=== PATIENT | male | born 1950 | race Caucasian/White ===

== ENCOUNTER 2019-12-29 10:55 | Outpatient (CLI) | payer MEDICARE, SELFPAY ==
[2019-12-29 11:30] VITALS: PULSE 64; O2SAT 93
[2019-12-29 11:35] VITALS: PULSE 100; O2SAT 86
[2019-12-29 11:37] VITALS: O2SAT 87
[2019-12-29 11:39] VITALS: O2SAT 90
[2019-12-29 11:45] VITALS: PULSE 67; O2SAT 92
[2019-12-29 11:46] LABS: Creatinine Urine 147.5 mg/dL
--- NOTE | 2019-12-29 11:49 | HOMEO2EVAL ---
Home Oxygen Evaluation RC: Home Oxygen (O2) Evaluation Start: 12/29/19 11:46 Freq: Status: Active Protocol: RPE Activity Type Activity Date Activity User E-Sign Co-Sign Detail Recorded Client Recorded Date Recorded By Document 12/29/19 11:30 AMINAH [email or web address] 12/29/19 11:48 AMINAH Document 12/29/19 11:35 AMINAH [email or web address] 12/29/19 11:48 AMINAH Document 12/29/19 11:37 AMINAH [email or web address] 12/29/19 11:48 AMINAH Document 12/29/19 11:39 AMINAH [email or web address] 12/29/19 11:48 AMINAH Document 12/29/19 11:45 AMINAH [email or web address] 12/29/19 11:48 AMINAH 12/29/19 12/29/19 12/29/19 11:30 11:35 11:37 Home O2 Evaluation Test Phase Resting Exercise Exercise Oxygen Delivery Room Air Room Air Nasal Cannula Oxygen Flow Rate (L/min) 1 Pulse Oximetry (90-100 %) 93 86 L 87 L Pulse Rate (60-100 beats/min) 64 100 Ambulation Distance (feet) Home Oxygen Evaluation Comments Treatment Charges O2 Evaluation 12/29/19 12/29/19 11:39 11:45 Home O2 Evaluation Test Phase Exercise Resting Oxygen Delivery Nasal Cannula Room Air Oxygen Flow Rate (L/min) 2 Pulse Oximetry (90-100 %) 90 92 Pulse Rate (60-100 beats/min) 67 Ambulation Distance (feet) 150 Home Oxygen Evaluation Comments PT REQUIRES 2 WITH ACTIVITY Treatment Charges
--- NOTE | 2019-12-29 11:49 | PCRCNOTE ---
SIX MINUTE WALK FAILED, HOME O2 EVAL DONE TO EVALUATE O2 NEEDS PER ORDER.
--- NOTE | 2019-12-29 11:50 | PCRCNOTE ---
HOME O2 EVAL FAXED OVER TO DR HARMAN
[2019-12-29 11:57] LABS: Alanine Aminotransferase 16 U/L (4-50); Alkaline Phosphatase 131 U/L (38-126); Aspartate Amino Transferase 23 U/L (17-59); Bilirubin,Total 0.3 mg/dL (0.2-1.3); Blood Urea Nitrogen 22 mg/dL (9-20); Calcium 8.6 mg/dL (8.4-10.2); Carbon Dioxide 31 mmol/L (22-30); Chloride 99 mmol/L (98-107); Estimated Glomerular Filt Rate > 60; Glucose 95 mg/dL (75-110); Potassium 4.5 mmol/L (3.4-5.0); Sodium 139 mmol/L (137-145)
[2019-12-29 11:58] LABS: Hemoglobin A1C 6.5 % (<5.7)
[2019-12-29 12:03] LABS: MALB Creatinine Ratio < 4.1 mg/g (0-30); Microalbumin Urine Random < 6.0 mg/L (0-16.7)
== END 2019-12-29 10:56 | disposition home or self-care (01) ==
PROVIDERS: PCP Internal Medicine; Visit Provider Internal Medicine
DX: E11.65 Type 2 diabetes mellitus with hyperglycemia (principal); R06.02 Shortness of breath
CPT/HCPCS: 36415; 80053; 82043; 83036; 94618

== ENCOUNTER 2021-03-07 09:28 | Outpatient (CLI) | payer MEDICARE, SELFPAY ==
[2021-03-07 10:05] LABS: Basophils Absolute Auto 0.1 K/mm3 (0.0-0.1); Basophils Percent Auto 1.1 % (0.2-1.2); Eosinophils Absolute Auto 0.3 K/mm3 (0-0.3); Eosinophils Percent Auto 2.7 % (0-4.4); Hematocrit 43.3 % (42.0-52.0); Hemoglobin 13.6 g/dL (14.0-18.0); Immature Granulocyte Absolute 0.04 K/mm3 (0.00-0.031); Immature Granulocyte Percent A 0.4 % (0-0.5); Lymphocytes Percent Auto 21.1 % (18.3-44.2); Mean Corpuscular HGB Conc 31.4 g/dl (32-36); Mean Corpuscular Volume 89.3 fl (80-100); Mean Platelet Volume 10.7 fl (7.4-10.4); Monocytes Absolute Auto 0.8 K/mm3 (0.1-0.6); Monocytes Percent Auto 7.1 % (2.6-8.5); Neutrophils Absolute Auto 7.4 K/mm3 (1.3-6.7); Neutrophils Percent Auto 67.6 % (45.5-73.1); Platelet Count Result 232 k/mm3 (150-375); Red Blood Count 4.85 M/mm3 (4.6-6.20); Red Cell Distribution Width 15.8 % (11.5-14.5); White Blood Count 10.9 K/mm3 (4.5-10.0)
[2021-03-07 10:19] LABS: Alanine Aminotransferase 18 U/L (4-50); Alkaline Phosphatase 105 U/L (38-126); Anion Gap 5 mmol/L (8-16); Aspartate Amino Transferase 26 U/L (17-59); Bilirubin,Total 0.2 mg/dL (0.2-1.3); Blood Urea Nitrogen 14 mg/dL (9-20); Calcium 8.8 mg/dL (8.4-10.2); Carbon Dioxide 33 mmol/L (22-30); Chloride 100 mmol/L (98-107); Cholesterol 152 mg/dL (0-200); Estimated Glomerular Filt Rate > 60; Glucose 106 mg/dL (75-110); HDL Direct 55 mg/dL; Potassium 4.2 mmol/L (3.4-5.0); Sodium 138 mmol/L (137-145); Triglycerides 105 mg/dL (<150)
[2021-03-07 10:30] LABS: LDL Cholesterol Direct 81 mg/dL
[2021-03-07 10:38] LABS: Creatinine Urine 54.8 mg/dL
[2021-03-07 10:50] LABS: Vitamin D 25 Hydroxy 24.8 ng/mL
[2021-03-07 10:53] LABS: Hemoglobin A1C 6.1 % (<5.7)
[2021-03-07 10:54] LABS: Prostate Specific Antigen 0.1 ng/mL (< OR = 4.0)
[2021-03-07 11:08] LABS: MALB Creatinine Ratio < 10.9 mg/g (0-30); Microalbumin Urine Random < 6.0 mg/L (0-16.7)
[2021-03-07 11:29] LABS: Folic Acid > 20.0 ng/mL (2.76->20)
== END 2021-03-07 09:29 | disposition home or self-care (01) ==
PROVIDERS: PCP Internal Medicine; Visit Provider Internal Medicine
DX: Z12.5 Encounter for screening for malignant neoplasm of prostate (principal); E78.2 Mixed hyperlipidemia; E11.65 Type 2 diabetes mellitus with hyperglycemia; E55.9 Vitamin D deficiency, unspecified; I11.0 Hypertensive heart disease with heart failure; F10.11 Alcohol abuse, in remission; F32.9 Major depressive disorder, single episode, unspecified; I48.0 Paroxysmal atrial fibrillation; I50.32 Chronic diastolic (congestive) heart failure; J44.9 Chronic obstructive pulmonary disease, unspecified; E78.5 Hyperlipidemia, unspecified
CPT/HCPCS: 36415; 80053; 80061; 82043; 82306; 82607; 82746; 83036; 84153; 84443; 85025; G0103

== ENCOUNTER 2021-08-20 10:02 | Observation (INO) | payer MEDICARE, SELFPAY ==
[2021-08-20] VITALS (27 sets, daily range): BP systolic 112–157; BP diastolic 58–80; PULSE 62–90; RESP 12–25; TEMP 36.4–36.7; O2SAT 87–99; BMI 31.5
--- NOTE | ~2021-08-20 | XR_ITS ---
EXAMINATION: XR chest 2V 08/20/2021 10:16 INDICATION: Shortness of breath PROCEDURE: 2 view chest COMPARISON: Comparison to multiple prior studies sequentially, with oldest reviewed study dated 03/29. FINDINGS: The lungs are clear. The cardiomediastinal silhouette is within normal limits. There are no pleural effusions. There is no pneumothorax suspected. The lungs are hyperinflated which is consistent with, but not diagnostic of chronic obstructive pulmo nary disease. IMPRESSION: 1: NO ACUTE CARDIOPULMONARY DISEASE. Reviewed, dictated and finalized at location A.
--- NOTE | ~2021-08-20 | CT_ITS ---
EXAMINATION: CTA chest PE protocol DATE: 08/20/2021 13:16 CDT INDICATION: Shortness of breath. Dyspnea. Decreased oxygen saturation. TECHNIQUE: Computed tomographic angiography (CTA) of the chest was performed with 100 mL Omnipaque-35 0 intravenous contrast. The dose-length product was 801.70 mGy-cm. Maximum intensity projection 3D-re constructions of the aorta and other arteries were constructed by the technologist on a separate work station. Automated exposure control and iterative reconstruction technique were employed. COMPARISON: CT dated 09/29/2019 FINDINGS: 5 mm right lower lobe nodule, image 84, not significantly changed from prior examination. B ibasilar dependent atelectasis. No endobronchial lesions. There is emphysema. There is scarring at th e right apex, unchanged. No thoracic lymphadenopathy. Shotty mediastinal lymph nodes are likely reactive. Study is technically adequate without evidence for pulmonary embolism. Heart size is normal. No significant pleural or pe ricardial effusion. Upper abdomen is unremarkable. No pneumothorax. Moderate thoracic spondylosis wit h accentuated kyphosis. There are healed bilateral rib fractures. IMPRESSION: 1. No acute cardiopulmonary disease. No evidence for pulmonary embolism. 2: Stable 5 mm right lower lobe nodule considered benign given the lack of interval change. 3: Emphysema. Reviewed, dictated and finalized at location A. IMPRESSION: 1. No acute cardiopulmonary disease. No evidence for pulmonary embolism. 2: Stable 5 mm right lower lobe nodule considered benign given the lack of inte rval change. 3: Emphysema.
--- NOTE | ~2021-08-20 | US_ITS ---
EXAMINATION: US venous doppler [facility] DATE: 08/21/2021 09:37 INDICATION: Lower limb edema. TECHNIQUE: Grayscale ultrasound images without and with compression and Doppler ultrasound images of the bilateral lower extremity veins were obtained. COMPARISON: Ultrasound 10/06/2019 FINDINGS: The visualized portions of right common femoral vein, profunda (deep) femoral vein, femoral vein, pop liteal vein, peroneal veins, posterior tibial veins, and greater saphenous vein outflow are patent. The visualized portions of left common femoral vein, profunda femoral vein, femoral vein, popliteal v ein, peroneal veins, posterior tibial veins, and greater saphenous vein outflow are patent. IMPRESSION: 1. No deep venous thrombosis. Reviewed, dictated and finalized at location A.
--- NOTE | 2021-08-20 10:06 | ECG_ITS ---
Measurements Intervals [place] Rate: 63 P: 269 NM: 213 QRS: 25 QRSD: 90 T: 38 QT: 416 QTc: 426 Interpretive Statements SINUS RHYTHM WITH FIRST DEGREE AV BLOCK BASELINE ARTIFACT- I, II, III, AVR, AVL, AVF, V1-V6 ABNORMAL ECG Electronically Signed On 08-20-2021 16:32:08 CDT by Jonatan Lea D.O.
[2021-08-20 10:31] LABS: Basophils Absolute Auto 0.1 K/mm3 (0.0-0.1); Eosinophils Absolute Auto 0.4 K/mm3 (0-0.3); Eosinophils Percent Auto 4.1 % (0-4.4); Hemoglobin 13.4 g/dL (14.0-18.0); Immature Granulocyte Absolute 0.03 K/mm3 (0.00-0.031); Immature Granulocyte Percent A 0.3 % (0-0.5); Lymphocytes Absolute Auto 1.66 K/mm3 (0.9-3.2); Mean Corpuscular HGB Conc 31.2 g/dl (32-36); Mean Corpuscular Hemoglobin 29.2 pg (26-34); Mean Corpuscular Volume 93.7 fl (80-100); Mean Platelet Volume 10.7 fl (7.4-10.4); Monocytes Absolute Auto 0.9 K/mm3 (0.1-0.6); Monocytes Percent Auto 9.7 % (2.6-8.5); Neutrophils Absolute Auto 6.2 K/mm3 (1.3-6.7); Neutrophils Percent Auto 66.9 % (45.5-73.1); Platelet Count Result 182 k/mm3 (150-375); Red Blood Count 4.59 M/mm3 (4.6-6.20); Red Cell Distribution Width 15.9 % (11.5-14.5); White Blood Count 9.2 K/mm3 (4.5-10.0)
[2021-08-20 10:40] LABS: Anion Gap 7 mmol/L (8-16); Blood Urea Nitrogen 10 mg/dL (9-20); Calcium 8.7 mg/dL (8.4-10.2); Carbon Dioxide 33 mmol/L (22-30); Chloride 101 mmol/L (98-107); Estimated CRCL calculation 101 ml/min; Estimated Glomerular Filt Rate > 60; Glucose 104 mg/dL (65-110); Potassium 4.3 mmol/L (3.4-5.0); Sodium 141 mmol/L (137-145)
[2021-08-20 10:43] LABS: Prothrombin Time 12.8 Seconds (11.1-14.7)
[2021-08-20 10:44] LABS: Partial Thromboplastin Time 27.7 SECONDS (22.3-36.8)
[2021-08-20 10:53] LABS: NT Pro B Type Natriuretic Pept 178 pg/mL (5-100); Troponin I < 0.012 ng/mL (0.000-0.034)
--- NOTE | 2021-08-20 11:38 | PC.NURSE ---
dorys, Janneth, MARIAN and D Dimer
[2021-08-20 11:50] LABS: D Dimer 3.14 ug/mL (<0.48)
--- NOTE | 2021-08-20 12:18 | ED.GENADULT ---
HPI - General Adult General Chief complaint: Shortness of Breath/Dyspnea Stated complaint: SOB Time Seen by Provider: 08/20/21 11:04 Source: patient History of Present Illness HPI narrative: Patient is a 70 y/o male complaining of mild to moderate SOB for several days. He states that laying flat worsens his symptoms. He has some cough, but no fever or chest pain. He states that he has history of asthma and COPD. Related Data Home Medications Medication Instructions Recorded Confirmed Januvia 50 mg PO DAILY 10/05/19 08/20/21 amiodarone 200 mg PO DAILY 10/05/19 08/20/21 aspirin [Aspirin Low Dose] 81 mg PO DAILY 10/05/19 08/20/21 diltiazem HCl 240 mg PO DAILY 10/05/19 08/20/21 finasteride 5 mg PO DAILY 10/05/19 08/20/21 folic acid 1 mg PO DAILY 10/05/19 08/20/21 metformin 500 mg PO BID 10/05/19 08/20/21 metoprolol tartrate 100 mg PO DAILY 10/05/19 08/20/21 multivitamin [Daily-Kris] 1 tablet PO DAILY 10/05/19 08/20/21 pantoprazole 40 mg PO DAILY 10/05/19 08/20/21 tamsulosin 0.4 mg PO DAILY 10/05/19 08/20/21 thiamine HCl (vitamin B1) 100 mg PO DAILY 10/05/19 08/20/21 diphenhydramine HCl 50 mg capsule 50 mg PO TID PRN 03/15/21 08/20/21 trazodone 50 mg PO HS PRN 08/20/21 08/20/21 Allergies Allergy/AdvReac Type Severity Reaction Status Date / Time shellfish derived Allergy Unknown Unknown Verified 06/06/21 10:38 Review of Systems Constitutional: Constitutional: Denies chills, Denies fever(s), Denies headache(s) and Denies weakness Eyes: Eyes: Denies blurry vision ENT: Denies headache(s) and Denies neck pain Cardiovascular: Cardiovascular: Denies chest pain and Reports dyspnea Respiratory: Respiratory: Reports cough and Reports dyspnea Gastrointestinal: Gastrointestinal: Denies abdominal pain, Denies diarrhea, Denies nausea and Denies vomiting Genitourinary: Genitourinary: Denies hematuria and Denies dysuria Musculoskeletal: Musculoskeletal: Denies back pain and Denies neck pain Neurologic: Denies headache(s) and Denies weakness [facility] Past Medical History Medical History (Updated 08/21/21 @ 08:05 by Denisha Jordan MD) Asthma Borderline type 2 diabetes mellitus CHF (congestive heart failure) COPD (chronic obstructive pulmonary disease) Falls UTI (urinary tract infection) Surgical History Surgical History History of hip surgery left, pinning Family History Family History Father Diabetes mellitus Social History Social History Social History: Patient is currently smoking 1/2 pack of cigarettes per day currently but has smoked as much as 2 Packs per day. Has smoked since age 17. Occasional alcohol. He is a full code. Smoking packs per day: 0.5 Smoking cigarettes per day: 10.0 Years smoked: 55 Smoking pack-years: 27.50 Smoking status: Current every day smoker Tobacco type: cigarettes Second hand tobacco smoke exposure: Yes Alcohol intake: former Substance use: never Substance use type: does not use Gender identity (if verbalized by the patient): Male Spiritual care concerns: No Agree to blood products: Yes Exam Const: General: no acute distress and well developed Orientation/consciousness: oriented to person, oriented to place, oriented to time and patient oriented x3 HENMT: Head: normocephalic Ears: external ears normal General nose exam: Normal external nose present Eyes: General: appearance normal, both eyes and all related structures Conjunctivae: conjunctivae normal Neck: Neck: normal visual inspection and full ROM Chest: Chest palpation & inspection: normal inspection of the chest and no tenderness Resp: Effort & Inspection: normal respiratory effort Auscultation: clear to auscultation bilaterally Cardio: Rate: regular rate Rhythm: regular rhythm GI: GI Palp: No abdominal tenderness an
[2021-08-20] MEDS: methylPREDNISolone SOD SUCC 125 MG VIAL IV PUSH (13:58)
[2021-08-20] MEDS: IPRATROPIUM BR 0.02% INH SOLN 0.5 MG/2.5 ML VIAL INHALATION ×2 (14:06→21:40)
[2021-08-20] MEDS: ALBUTEROL SULFATE NEB 2.5 MG/0.5 ML INH INHALATION (14:06)
[2021-08-20 14:27] LABS: Troponin I < 0.012 ng/mL (0.000-0.034)
[2021-08-20 16:58] LABS: Troponin I < 0.012 ng/mL (0.000-0.034)
--- NOTE | 2021-08-20 18:55 | PC.NURSE ---
This patient, Isaiah Ambrosio, was admitted to [facility] Surg Room 322-01. Patient/family oriented to hospital policies and general routines including ID bracelet, bed and alarms, visiting hours, pain management, procedures, bathroom and other care routines, personal items, smoking policy, room service/diet, and visiting hours. Information on how to activate the Rapid Response Team has been discussed. Patient/Family are encouraged to report perceived risks to care and to ask questions if they do not understand what they are told or what they should do.
--- NOTE | 2021-08-20 20:57 | PM.IMHP ---
H&P: HPI History of Present Illness Date/Time: 08/20/21 20:57 Chief Complaint: Shortness of breath Narrative: This is a 70-year-old male with past medical history significant for COPD/asthma, atrial fibrillation rate controlled not anticoagulated, type 2 diabetes mellitus, tobacco dependence, peripheral diabetic neuropathy, benign prostatic hyperplasia, coronary artery disease, congestive heart failure, recurrent falls. Patient lives at assisted living [facility] and he was sent to emergency room due to staff concerns for patient's shortness of breath. However patient states that he does not know why he was sent over that did this is a usual for him since he was a 1 1/2 years old however patient is evident that his shortness of breath he is on supplemental oxygen by nasal cannula his is coughing and is productive. States that his appetite is good and reiterates that he should have come to the hospital that disease his usual. In emergency room patient was saturating at 87% and was placed on 2 L of supplemental oxygen by nasal cannula and increased to 92%. A chest x-ray was clear and a CT angio PE protocol showed no acute pulmonary embolus significant emphysema. Review of Systems Constitutional: Constitutional: Denies chills, Denies fatigue, Denies fever(s), Denies lethargy, Denies malaise, Denies night sweats, Denies poor appetite and Denies weakness Eyes: Eyes: Denies change in vision ENT: Denies nasal congestion, Denies nasal discharge, Denies nasal obstruction, Denies nasal trauma and Denies odynophagia Cardiovascular: Cardiovascular: Denies claudication, Reports leg edema, Denies radiating jaw, neck or arm pain, Denies palpitations, Denies dyspnea on exertion and Denies orthopnea Respiratory: Respiratory: Reports cough and Reports excessive phlegm production Gastrointestinal: Gastrointestinal: Denies abdominal pain, Denies dyspepsia, Denies heartburn, Denies diarrhea, Denies nausea and Denies vomiting Genitourinary: Genitourinary: Reports no additional male genitourinary complaints Musculoskeletal: Musculoskeletal: Reports no additional musculoskeletal complaints Integumentary/Breasts: Skin/Breast: Reports system reviewed and no additional complaints, except as docu Neurologic: Reports system reviewed and no additional complaints, except as documented Psychiatric: Psychiatric: Reports no additional psychiatric complaints Endocrine: Endocrine: Reports no additional endocrine complaints Hematologic/Lymphatic: Hematologic/Lymphatic: Reports no additional hematologic/lymphatic complaints Allergic/Immunologic: Allergic/Immunologic: Reports no additional allergic/immunologic complaints [facility] Past Medical History Medical History (Updated 08/21/21 @ 01:55 by Ranulfo Perez MD) Asthma Borderline type 2 diabetes mellitus CHF (congestive heart failure) COPD (chronic obstructive pulmonary disease) Falls UTI (urinary tract infection) Surgical History Surgical History History of hip surgery left, pinning Family History Family History Father Diabetes mellitus Social History Social History Social History: Patient is currently smoking 1/2 pack of cigarettes per day currently but has smoked as much as 2 Packs per day. Has smoked since age 17. Occasional alcohol. He is a full code. Smoking packs per day: 0.5 Smoking cigarettes per day: 10.0 Years smoked: 55 Smoking pack-years: 27.50 Smoking status: Current every day smoker Tobacco type: cigarettes Second hand tobacco smoke exposure: Yes Alcohol intake: former Substance use: never Substance use type: does not use Gender identity (if verbalized by the patient): Male Spiritual care concerns: No Agree to blood products: Yes Meds Home Medications and Allergies Home
[2021-08-20] MEDS: ALBUTEROL SULFATE NEB 2.5 MG/0.5 ML INH 5 MG INHALATION (21:40)
[2021-08-21] VITALS (13 sets, daily range): BP systolic 133–146; BP diastolic 62–79; PULSE 76–99; RESP 18–19; TEMP 36.5–36.9; O2SAT 90–92
[2021-08-21] MEDS: ALBUTEROL SULFATE NEB 2.5 MG/0.5 ML INH 5 MG INHALATION ×2 (03:10→08:15)
[2021-08-21] MEDS: IPRATROPIUM BR 0.02% INH SOLN 0.5 MG/2.5 ML VIAL INHALATION ×2 (03:10→08:15)
[2021-08-21] MEDS: AMIODARONE HCL 200 MG TABLET PO (08:48)
[2021-08-21] MEDS: ROSUVASTATIN 5 MG TABLET PO (08:48)
[2021-08-21] MEDS: PANTOPRAZOLE 40 MG TABLET PO (08:48)
[2021-08-21] MEDS: ASPIRIN 81 MG ENTERIC TABLET PO (08:48)
[2021-08-21 08:49] LABS: Glucose Point of Care 144 mg/dl (65-105)
[2021-08-21] MEDS: FOLIC ACID 1 MG TABLET PO (08:49)
[2021-08-21] MEDS: MULTIVITAMINS THERAPEUTIC TAB (*BKC) 1 TABLET PO (08:50)
[2021-08-21] MEDS: THIAMINE HCL 100 MG TABLET PO (08:50)
[2021-08-21] MEDS: FINASTERIDE 5 MG TABLET PO (08:50)
[2021-08-21] MEDS: GABAPENTIN 300 MG CAPSULE PO ×2 (08:51→20:51)
[2021-08-21] MEDS: TAMSULOSIN HCL 0.4 MG CAPSULE PO (08:51)
--- NOTE | 2021-08-21 09:22 | PC.NURSE ---
Pt refusing to keep IV in. It gets in his way, he can't sleep with it; it's just too much . No one explained it to me. I explained the need for the IV so that we can give steroids to open up his lungs and antibiotics to help him with his infection. He said I can put one in but he will rip it right out because he doesn't want it in when it's not being used. Called SCOTT who asked for a sitter for him to prevent removal. I informed her that he's a/o x3 but he says he's grouchy and doesn't want to be told what to do. She stated we needed the IV steroids in. Called Dianna Castro who said she would get in touch with Maria C to find a solution. Will continue to monitor.
[2021-08-21 12:41] LABS: Glucose Point of Care 120 mg/dl (65-105)
[2021-08-21] MEDS: methylPREDNISolone SOD SUCC 40 MG VIAL IM ×2 (15:15→20:50)
--- NOTE | 2021-08-21 15:16 | PM.IMPN ---
Progress Note: A&P Assessment and Plan (1) COPD exacerbation: Code(s): J44.1 - Chronic obstructive pulmonary disease with (acute) exacerbation Status: Acute Assessment and Plan: Patient appears to be having COPD exacerbation - continue IV steroids but decreased to 40 mg every 12 hours - continue Levaquin but change to oral since the patient does not like having IVs - continue albuterol. his home maintenance inhaler is not formulary so we will go ahead and do Symbicort - wean oxygen as tolerated, currently off oxygen during my exam - CTA does not show any evidence of PE and does show emphysema -5mm right lower lobe nodule considered benign on CT -likely d/c tomorrow if doing well on decreased dose of steroids and transition to oral then (2) Person under investigation for COVID-19: Code(s): Z20.822 - Contact with and (suspected) exposure to COVID-19 Status: Acute Assessment and Plan: COVID PCR pending - seems less likely but a good idea since he has an elevated D-dimer and wheezing/ shortness of breath (3) ANA ROSA (obstructive sleep apnea): Code(s): G47.33 - Obstructive sleep apnea (adult) (pediatric) Status: Acute Assessment and Plan: CPAP at nighttime (4) CAD (coronary artery disease): Code(s): I25.10 - Atherosclerotic heart disease of [place] coronary artery without angina pectoris Status: Acute Assessment and Plan: no chest pain - continue aspirin and metoprolol (5) Atrial fibrillation: Code(s): I48.91 - Unspecified atrial fibrillation Status: Acute Assessment and Plan: Stable and appears to be in normal sinus rhythm - patient states he does not have a occ therapist nor does he have any history of atrial fibrillation. it looks like he has a history of seeing Dr. Lea who also mentions that the patient denied a history of atrial fibrillation. He has been on amiodarone for over a year. He should follow up with Dr. abdullahi to get this sorted out, possibly may need a Holter monitor. -Continue amiodarone -not on anticoagulation and I would not recommend starting any until the above is figured out. (6) Chronic diastolic congestive heart failure: Code(s): I50.32 - Chronic diastolic (congestive) heart failure Status: Acute Assessment and Plan: no evidence of heart failure (7) Type 2 diabetes mellitus with hyperglycemia, without long-term current use of insulin: Code(s): E11.65 - Type 2 diabetes mellitus with hyperglycemia Status: Acute Assessment and Plan: last glucose 120 - continue sliding scale insulin -Holding Januvia and metformin (8) Tobacco dependence: Code(s): F17.200 - Nicotine dependence, unspecified, uncomplicated Status: Acute Assessment and Plan: Pt does not want a nicotine patch nor does he want to quit smoking. he understands the risk of this (9) BPH (benign prostatic hyperplasia): Code(s): N40.0 - Benign prostatic hyperplasia without lower urinary tract symptoms Status: Acute Assessment and Plan: Continue finasteride (10) Gait instability: Code(s): R26.81 - Unsteadiness on feet Status: Acute Assessment and Plan: patient is ambulating well (11) Elevated d-dimer: Code(s): R79.89 - Other specified abnormal findings of blood chemistry Status: Acute Assessment and Plan: noted on admission. CTA and lower extremity Doppler negative for DVT. Pending COVID PCR Time Spent With Patient Time with patient: 25 - 35 minutes Subjective Date/time seen: 08/21/21 15:16 Interval history: Pt is a 70 y/o male here for SOB. Patient was seen today and states he is feeling better. He says he really did not feel all that bad prior to coming into the hospital because he says he always wheezes any always feels short of breath. He would like to have oxygen at the as
[2021-08-21] MEDS: ALBUTEROL SULFATE (*SP) AEROSOL 1 PUFF 2 PUFF INHALATION ×2 (15:55→21:04)
[2021-08-21] MEDS: ALBUTEROL SULFATE (*SP) INHALER 1 PUFF (15:55)
[2021-08-21 16:47] LABS: SARS-CoV-2 RNA PCR Negative
[2021-08-21 17:12] LABS: Glucose Point of Care 117 mg/dl (65-105)
[2021-08-22] VITALS (17 sets, daily range): BP systolic 139–153; BP diastolic 62–74; PULSE 71–95; RESP 18–20; TEMP 36.2–37.1; O2SAT 87–96
[2021-08-22] MEDS: ALBUTEROL SULFATE (*SP) AEROSOL 1 PUFF 2 PUFF INHALATION ×5 (02:38→20:38)
--- NOTE | 2021-08-22 06:10 | PC.NURSE ---
Pt refuses his ekg monitor. Pt was given education on why monitor is important. Pt has been running sinus rhythm with a noted 1st degree heart block. VT interval reads at 0.24. Nurse called Dr. Perez at 0610 to inform her of pt of refusal. Doctor aware of pt refusal to wear tele monitor.
[2021-08-22 07:02] LABS: Alanine Aminotransferase 26 U/L (4-50); Alkaline Phosphatase 86 U/L (38-126); Anion Gap 6 mmol/L (8-16); Aspartate Amino Transferase 34 U/L (17-59); Bilirubin,Total 0.3 mg/dL (0.2-1.3); Blood Urea Nitrogen 19 mg/dL (9-20); Calcium 8.9 mg/dL (8.4-10.2); Carbon Dioxide 31 mmol/L (22-30); Chloride 102 mmol/L (98-107); Estimated CRCL calculation 114 ml/min; Estimated Glomerular Filt Rate > 60; Glucose 168 mg/dL (65-110); Potassium 4.4 mmol/L (3.4-5.0); Sodium 139 mmol/L (137-145)
[2021-08-22 08:08] LABS: Glucose Point of Care 163 mg/dl (65-105)
[2021-08-22] MEDS: ROSUVASTATIN 5 MG TABLET PO (08:15)
[2021-08-22] MEDS: ASPIRIN 81 MG ENTERIC TABLET PO (08:15)
[2021-08-22] MEDS: levoFLOXacin 750 MG TABLET PO (08:15)
[2021-08-22] MEDS: FINASTERIDE 5 MG TABLET PO (08:15)
[2021-08-22] MEDS: TAMSULOSIN HCL 0.4 MG CAPSULE PO (08:15)
[2021-08-22] MEDS: THIAMINE HCL 100 MG TABLET PO (08:15)
[2021-08-22] MEDS: FOLIC ACID 1 MG TABLET PO (08:16)
[2021-08-22] MEDS: AMIODARONE HCL 200 MG TABLET PO (08:16)
[2021-08-22] MEDS: PANTOPRAZOLE 40 MG TABLET PO (08:16)
[2021-08-22] MEDS: GABAPENTIN 300 MG CAPSULE PO ×2 (08:16→20:30)
[2021-08-22] MEDS: MULTIVITAMINS THERAPEUTIC TAB (*BKC) 1 TABLET PO (08:16)
[2021-08-22] MEDS: methylPREDNISolone SOD SUCC 40 MG VIAL IM ×2 (08:17→20:32)
[2021-08-22 11:11] LABS: Glucose Point of Care 296 mg/dl (65-105)
[2021-08-22] MEDS: INSULIN ASPART (*BKC) 100 UNITS/ML SUB-Q (11:47)
--- NOTE | 2021-08-22 12:45 | HOMEO2EVAL ---
Evaluation was performed at [facility] Home Oxygen Evaluation RC: Home Oxygen (O2) Evaluation Start: 08/22/21 09:49 Freq: ONCE Status: Active Protocol: RPE Activity Type Activity Date Activity User E-Sign Co-Sign Detail Recorded Client Recorded Date Recorded By Document 08/22/21 11:30 AMINAH [email or web address] 08/22/21 12:45 AMINAH Document 08/22/21 11:31 AMINAH [email or web address] 08/22/21 12:45 AMINAH Document 08/22/21 11:33 AMINAH [email or web address] 08/22/21 12:45 AMINAH Document 08/22/21 11:34 AMINAH [email or web address] 08/22/21 12:45 AMINAH Document 08/22/21 11:45 AMINAH [email or web address] 08/22/21 12:45 AMINAH 08/22/21 08/22/21 08/22/21 11:30 11:31 11:33 Home O2 Evaluation Test Phase Resting Resting Exercise Oxygen Delivery Room Air Nasal Cannula Nasal Cannula Oxygen Flow Rate (L/min) 1 1 Pulse Oximetry (90-100 %) 87 L 90 87 L Ambulation Distance (feet) Home Oxygen Evaluation Comments Treatment Charges O2 Evaluation - Inpatient 08/22/21 08/22/21 11:34 11:45 Home O2 Evaluation Test Phase Exercise Resting Oxygen Delivery Nasal Cannula Nasal Cannula Oxygen Flow Rate (L/min) 2 1 Pulse Oximetry (90-100 %) 90 93 Ambulation Distance (feet) 150 Home Oxygen Evaluation Comments PT REQUIRES 1 L AT REST AND 2 L WITH EXERTION /ACTIVITY Treatment Charges
--- NOTE | 2021-08-22 12:50 | PCRCNOTE ---
HOME O2 EVAL COMPLETED. PT REQUIRES 1 L AT REST AND 2L WITH EXERTION. WILL ARRANGE O2 WITH [facility]. PT RESIDES IN ASSISTED LIVING AT [facility]. RN NOTIFIED. WILL BRING TRANSPORT TANK TO PT PRIOR TO D/C
--- NOTE | 2021-08-22 13:37 | PM.IMPN ---
Progress Note: A&P Assessment and Plan (1) COPD exacerbation: Code(s): J44.1 - Chronic obstructive pulmonary disease with (acute) exacerbation Status: Acute Assessment and Plan: continue IV steroids 40 mg every 12 hours today continue Levaquin, oral continue albuterol continue LABA Home O2 eval today-->1 L at rest 2 L with activity CTA does not show any evidence of PE and does show emphysema 5mm right lower lobe nodule considered benign on CT likely d/c tomorrow on oral steroids (2) Person under investigation for COVID-19: Code(s): Z20.822 - Contact with and (suspected) exposure to COVID-19 Status: Acute Assessment and Plan: elevated D-dimer and wheezing/ shortness of breath COVID PCR neg (3) ANA ROSA (obstructive sleep apnea): Code(s): G47.33 - Obstructive sleep apnea (adult) (pediatric) Status: Acute Assessment and Plan: CPAP at nighttime (4) CAD (coronary artery disease): Code(s): I25.10 - Atherosclerotic heart disease of [place] coronary artery without angina pectoris Status: Acute Assessment and Plan: no chest pain continue aspirin and metoprolol (5) Atrial fibrillation: Code(s): I48.91 - Unspecified atrial fibrillation Status: Acute Assessment and Plan: Rate stable patient states he does not have a inspector receiving nor does he have any history of atrial fibrillation; has seen Dr. Lea who also mentions that the patient denied a history of atrial fibrillation He has been on amiodarone for over a year Recommend follow up with Dr. abdullahi to get this sorted out, possibly may need a Holter monitor Continue amiodarone not on anticoagulation (6) Chronic diastolic congestive heart failure: Code(s): I50.32 - Chronic diastolic (congestive) heart failure Status: Acute Assessment and Plan: no evidence of heart failure (7) Type 2 diabetes mellitus with hyperglycemia, without long-term current use of insulin: Code(s): E11.65 - Type 2 diabetes mellitus with hyperglycemia Status: Acute Assessment and Plan: Last Hgb A1c 6.1 03/07/21 accuchecks, ssi Holding Januvia and metformin monitor (8) Tobacco dependence: Code(s): F17.200 - Nicotine dependence, unspecified, uncomplicated Status: Acute Assessment and Plan: Cessation advised pt refused nicotine patch, initially, will take one today (9) BPH (benign prostatic hyperplasia): Code(s): N40.0 - Benign prostatic hyperplasia without lower urinary tract symptoms Status: Acute Assessment and Plan: Continue finasteride (10) Gait instability: Code(s): R26.81 - Unsteadiness on feet Status: Acute Assessment and Plan: patient is ambulating well (11) Elevated d-dimer: Code(s): R79.89 - Other specified abnormal findings of blood chemistry Status: Acute Assessment and Plan: CTA and lower extremity Doppler negative for DVT COVID PCR neg Subjective Date/time seen: 08/22/21 13:37 Interval history: pt seen and evaluated; labs, vs and diagnostic reports reviewed; no acute events overnight; continues with wheezes and SOB Review of Systems Review of Systems: All systems reviewed & are unremarkable except as noted in HPI and below Exam Const: General: no acute distress, alert and awake Orientation/consciousness: patient oriented x3 HENMT: Head: normocephalic and atraumatic Ears: hearing grossly normal bilaterally and external ears normal Face and sinus: face symmetric Mouth: Yes Normal oral and palatal mucosa present Eyes: EOM: EOMs intact bilaterally Neck: Neck: full ROM and trachea midline Resp: Effort & Inspection: normal respiratory effort Auscultation: wheezes Cardio: Jugular venous distension: no JVD Rate: regular rate Rhythm: regular rhythm Heart sounds: S1 normal heart sound present and S2 normal heart sound present GI: GI Palp: Yes Soft to palpation Percussion: Y
[2021-08-22] MEDS: NICOTINE (*PBKC) 21 MG PATCH 1 PATCH TRANSDERM (16:14)
[2021-08-22 16:54] LABS: Glucose Point of Care 111 mg/dl (65-105)
[2021-08-22 21:28] LABS: Glucose Point of Care 150 mg/dl (65-105)
[2021-08-23] VITALS (7 sets, daily range): BP systolic 126–141; BP diastolic 72–78; PULSE 67–82; RESP 18–20; TEMP 36.4–36.7; O2SAT 90–95
[2021-08-23] MEDS: METOPROLOL TARTRATE 50 MG TAB PO ×2 (01:15→09:18)
[2021-08-23 08:10] LABS: Glucose Point of Care 155 mg/dl (65-105)
[2021-08-23] MEDS: TAMSULOSIN HCL 0.4 MG CAPSULE PO (08:33)
[2021-08-23] MEDS: PANTOPRAZOLE 40 MG TABLET PO (08:34)
[2021-08-23] MEDS: MULTIVITAMINS THERAPEUTIC TAB (*BKC) 1 TABLET PO (08:34)
[2021-08-23] MEDS: ROSUVASTATIN 5 MG TABLET PO (08:34)
[2021-08-23] MEDS: FINASTERIDE 5 MG TABLET PO (08:34)
[2021-08-23] MEDS: ASPIRIN 81 MG ENTERIC TABLET PO (08:34)
[2021-08-23] MEDS: THIAMINE HCL 100 MG TABLET PO (08:35)
[2021-08-23] MEDS: AMIODARONE HCL 200 MG TABLET PO (08:35)
[2021-08-23] MEDS: levoFLOXacin 750 MG TABLET PO (08:35)
[2021-08-23] MEDS: FOLIC ACID 1 MG TABLET PO (08:35)
[2021-08-23] MEDS: GABAPENTIN 300 MG CAPSULE PO (08:35)
[2021-08-23] MEDS: ALBUTEROL SULFATE (*SP) AEROSOL 1 PUFF 2 PUFF INHALATION (09:03)
[2021-08-23] MEDS: predniSONE 20 MG TABLET 40 MG PO (09:17)
--- NOTE | 2021-08-23 11:13 | PM.DS ---
DS: Admitting Diagnosis Discharge Date 08/23/2021 Admitting Diagnosis COPD exacerbation DS: Discharge Diagnosis Discharge Diagnosis (1) COPD exacerbation: Code(s): J44.1 - Chronic obstructive pulmonary disease with (acute) exacerbation Status: Acute Assessment and Plan: S/p IV steroids 40 mg every 12 hours, continue with oral taper continue Levaquin, oral continue albuterol continue LABA Home O2 eval today-->1 L at rest 2 L with activity CTA does not show any evidence of PE and does show emphysema 5mm right lower lobe nodule considered benign on CT likely d/c tomorrow on oral steroids (2) Person under investigation for COVID-19: Code(s): Z20.822 - Contact with and (suspected) exposure to COVID-19 Status: Acute Assessment and Plan: elevated D-dimer and wheezing/ shortness of breath COVID PCR neg (3) ANA ROSA (obstructive sleep apnea): Code(s): G47.33 - Obstructive sleep apnea (adult) (pediatric) Status: Acute Assessment and Plan: CPAP at nighttime (4) CAD (coronary artery disease): Code(s): I25.10 - Atherosclerotic heart disease of [place] coronary artery without angina pectoris Status: Acute Assessment and Plan: no chest pain continue aspirin and metoprolol (5) Atrial fibrillation: Code(s): I48.91 - Unspecified atrial fibrillation Status: Acute Assessment and Plan: Rate stable patient states 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 Lea who also mentions that the patient denied a history of atrial fibrillation He has been on amiodarone for over a year Recommend follow up with Dr. abdullahi to get this sorted out, possibly may need a Holter monitor Continue amiodarone not on anticoagulation (6) Chronic diastolic congestive heart failure: Code(s): I50.32 - Chronic diastolic (congestive) heart failure Status: Acute Assessment and Plan: no evidence of heart failure (7) Type 2 diabetes mellitus with hyperglycemia, without long-term current use of insulin: Code(s): E11.65 - Type 2 diabetes mellitus with hyperglycemia Status: Acute Assessment and Plan: Last Hgb A1c 6.1 03/07/21 S/p accuchecks, ssi Resume Januvia and metformin (8) Tobacco dependence: Code(s): F17.200 - Nicotine dependence, unspecified, uncomplicated Status: Acute Assessment and Plan: Cessation advised pt refused nicotine patch, initially, will take one today (9) BPH (benign prostatic hyperplasia): Code(s): N40.0 - Benign prostatic hyperplasia without lower urinary tract symptoms Status: Acute Assessment and Plan: Continue finasteride (10) Gait instability: Code(s): R26.81 - Unsteadiness on feet Status: Acute Assessment and Plan: patient is ambulating well (11) Elevated d-dimer: Code(s): R79.89 - Other specified abnormal findings of blood chemistry Status: Acute Assessment and Plan: CTA and lower extremity Doppler negative for DVT COVID PCR neg DS: Summary Hospital Course Hospital Course: This is a 70-year-old male with past medical history significant for COPD/asthma, atrial fibrillation rate controlled not anticoagulated, type 2 diabetes mellitus, tobacco dependence, peripheral diabetic neuropathy, benign prostatic hyperplasia, coronary artery disease, congestive heart failure, recurrent falls. Patient lives at assisted living facility [facility] and he was sent to emergency room due to staff concerns for patient's shortness of breath. However patient states that he does not know why he was sent over that did this is a usual for him since he was a 1 1/2 years old however patient is evident that his shortness of breath he is on supplemental oxygen by nasal cannula his is coughing and is productive. States that his appetite is good and reiterates that he should have come to the hospital that d
[2021-08-23 12:10] LABS: Glucose Point of Care 237 mg/dl (65-105)
== END 2021-08-23 12:45 ==
LOC: ANHED 11:10 → ANH3MEDSUR 16:38
PROVIDERS: Physician Assistant; Admitting Provider Family Medicine; Emergency Provider Emergency Medicine; PCP Internal Medicine; Visit Provider Family Medicine
DX: J44.1 Chronic obstructive pulmonary disease with (acute) exacerbation (principal); R06.02 Shortness of breath; J45.901 Unspecified asthma with (acute) exacerbation; I11.0 Hypertensive heart disease with heart failure; I50.32 Chronic diastolic (congestive) heart failure; E11.42 Type 2 diabetes mellitus with diabetic polyneuropathy; E11.65 Type 2 diabetes mellitus with hyperglycemia; F17.210 Nicotine dependence, cigarettes, uncomplicated; G47.33 Obstructive sleep apnea (adult) (pediatric); I48.91 Unspecified atrial fibrillation; I25.10 Atherosclerotic heart disease of native coronary artery without angina pectoris; N40.0 Benign prostatic hyperplasia without lower urinary tract symptoms; R29.6 Repeated falls; R60.0 Localized edema; Z20.822 Contact with and (suspected) exposure to COVID-19; Z79.84 Long term (current) use of oral hypoglycemic drugs
CPT/HCPCS: 36415; 71046; 71275; 80048; 80076; 82948; 83880; 84484; 85025; 85380; 85610; 85730; 93005; 93970; 94618; 94640; 96372; 96374; 96375; 99285; A9270; C9803; G0378; J1815; J1956; J2920; J2930; J7512; Q9967; U0003; U0005

== ENCOUNTER 2021-09-12 10:11 | Emergency (ER) | payer MEDICARE, MEDICAID, SELFPAY ==
[2021-09-12] VITALS (19 sets, daily range): BP systolic 97–123; BP diastolic 53–73; PULSE 63–74; RESP 16–29; TEMP 36.6–36.8; O2SAT 91–100
--- NOTE | ~2021-09-12 | XR_ITS ---
EXAMINATION: XR chest 1V portable DATE: 09/12/2021 11:08 INDICATION: Shortness of breath. TECHNIQUE: A single frontal view of the chest was obtained on 2 radiographs. COMPARISON: Chest 2 views 08/20/2021, chest CT 08/20/2021 FINDINGS: There are lucencies in the lungs, consistent with emphysema. There are reticular opacities in the lower lung zones, consistent with atelectasis versus scarring. No pleural effusion or pneumoth orax. The heart size is normal. IMPRESSION: 1. Emphysema. 2. Stable mild atelectasis versus scarring in the lower lung zones. Reviewed, dictated and finalized at location A.
--- NOTE | 2021-09-12 10:18 | ECG_ITS ---
Measurements Intervals Hiko Rate: 65 P: 93 MN: 259 QRS: 18 QRSD: 85 T: 44 QT: 383 QTc: 401 Interpretive Statements SINUS RHYTHM WITH FIRST DEGREE AV BLOCK BASELINE ARTIFACT- I, II, III, AVR, AVL, AVF, V3 ABNORMAL ECG Electronically Signed On 09-12-2021 15:34:43 CDT by Jonatan Lea D.O.
[2021-09-12] MEDS: ALBUTEROL SULFATE NEB 2.5 MG/0.5 ML INH 5 MG INHALATION (10:34)
[2021-09-12] MEDS: IPRATROPIUM BR 0.02% INH SOLN 0.5 MG/2.5 ML VIAL INHALATION (10:34)
[2021-09-12] MEDS: methylPREDNISolone SOD SUCC 125 MG VIAL IV PUSH (10:35)
[2021-09-12] MEDS: FUROSEMIDE INJ 40 MG/4 ML VIAL IV PUSH (10:35)
[2021-09-12 10:47] LABS: Basophils Absolute Auto 0.1 K/mm3 (0.0-0.1); Basophils Percent Auto 0.6 % (0.2-1.2); Eosinophils Absolute Auto 0.4 K/mm3 (0-0.3); Eosinophils Percent Auto 4.2 % (0-4.4); Hematocrit 42.4 % (42.0-52.0); Hemoglobin 13.3 g/dL (14.0-18.0); Immature Granulocyte Absolute 0.03 K/mm3 (0.00-0.031); Immature Granulocyte Percent A 0.3 % (0-0.5); Lymphocytes Percent Auto 17.8 % (18.3-44.2); Mean Corpuscular HGB Conc 31.4 g/dl (32-36); Mean Corpuscular Hemoglobin 29.6 pg (26-34); Mean Corpuscular Volume 94.4 fl (80-100); Monocytes Absolute Auto 0.9 K/mm3 (0.1-0.6); Neutrophils Absolute Auto 6.5 K/mm3 (1.3-6.7); Neutrophils Percent Auto 68.1 % (45.5-73.1); Platelet Count Result 172 k/mm3 (150-375); Red Blood Count 4.49 M/mm3 (4.6-6.20); Red Cell Distribution Width 16.6 % (11.5-14.5); White Blood Count 9.5 K/mm3 (4.5-10.0)
[2021-09-12 10:59] LABS: INR 0.9; Prothrombin Time 12.5 Seconds (11.1-14.7)
[2021-09-12 11:14] LABS: NT Pro B Type Natriuretic Pept 357 pg/mL (5-100); Troponin I < 0.012 ng/mL (0.000-0.034)
[2021-09-12 11:39] LABS: Alanine Aminotransferase 18 U/L (4-50); Albumin Level 3.8 g/dL (3.5-5.1); Alkaline Phosphatase 98 U/L (38-126); Anion Gap 5 mmol/L (8-16); Aspartate Amino Transferase 22 U/L (17-59); Bilirubin,Total 0.4 mg/dL (0.2-1.3); Blood Urea Nitrogen 11 mg/dL (9-20); Calcium 8.9 mg/dL (8.4-10.2); Carbon Dioxide 31 mmol/L (22-30); Chloride 102 mmol/L (98-107); Estimated CRCL calculation 102 ml/min; Estimated Glomerular Filt Rate > 60; Glucose 113 mg/dL (65-110); Potassium 4.2 mmol/L (3.4-5.0); Sodium 138 mmol/L (137-145)
--- NOTE | 2021-09-12 12:36 | ED.SOB ---
HPI - SOB/Dyspnea General Chief Complaint: Shortness of Breath/Dyspnea Stated Complaint: sob, swollen LE Time Seen by Provider: 09/12/21 10:13 Source: patient Mode of arrival: EMS Limitations: no limitations History of Present Illness HPI Narrative: 70-year-old with a history of COPD, CHF, chronic venous stasis of his both lower extremities here with complaints of shortness of breath since this morning. Patient states that he uses albuterol rescue inhaler as needed however the care home staff would not give it to him this morning. Patient denies any fever or chills. Has occasional cough. He also states that his both legs are weeping. More on the right side. He was supposed to be on Lasix but he does not take it because him has to urinate quite frequently. MD elicited complaint: shortness of breath Pertinent past history: COPD and congestive heart failure Onset (ago): hour(s) (1) Timing: intermittent Severity: moderate Exacerbating factors: nothing Relieving factors: bronchodilators Known history of: COPD and congestive heart failure Associated symptoms: denies other symptoms Related Data Home oxygen amount: 2 liters Home Medications Medication Instructions Recorded Confirmed Januvia 50 mg PO DAILY 10/05/19 08/20/21 amiodarone 200 mg PO DAILY 10/05/19 08/20/21 aspirin [Aspirin Low Dose] 81 mg PO DAILY 10/05/19 08/20/21 diltiazem HCl 240 mg PO DAILY 10/05/19 08/20/21 finasteride 5 mg PO DAILY 10/05/19 08/20/21 folic acid 1 mg PO DAILY 10/05/19 08/20/21 metformin 500 mg PO BID 10/05/19 08/20/21 metoprolol tartrate 100 mg PO DAILY 10/05/19 08/20/21 multivitamin [Daily-Kris] 1 tablet PO DAILY 10/05/19 08/20/21 pantoprazole 40 mg PO DAILY 10/05/19 08/20/21 tamsulosin 0.4 mg PO DAILY 10/05/19 08/20/21 thiamine HCl (vitamin B1) 100 mg PO DAILY 10/05/19 08/20/21 trazodone 50 mg PO HS PRN 08/20/21 08/20/21 albuterol sulfate [ProAir HFA] 2 puff INHALATION QID PRN 09/12/21 [id number] 2 inh INHALATION BID 09/12/21 [Breztri Aerosphere] Allergies Allergy/AdvReac Type Severity Reaction Status Date / Time shellfish derived Allergy Unknown Unknown Verified 09/12/21 10:27 Review of Systems Review of Systems: All systems reviewed & are unremarkable except as noted in HPI and below Constitutional: Constitutional: Reports no additional constitutional complaints Eyes: Eyes: Reports no additional eye complaints ENT: Reports system reviewed and no additional complaints, except as documented Cardiovascular: Cardiovascular: Reports no additional cardiovascular complaints Respiratory: Respiratory: Reports as per HPI Gastrointestinal: Gastrointestinal: Reports no additional gastrointestinal complaints Musculoskeletal: Musculoskeletal: Reports no additional musculoskeletal complaints Integumentary/Breasts: Skin/Breast: Reports system reviewed and no additional complaints, except as docu Neurologic: Reports system reviewed and no additional complaints, except as documented Psychiatric: Psychiatric: Reports no additional psychiatric complaints PMFSH Past Medical History Medical History Asthma Borderline type 2 diabetes mellitus CHF (congestive heart failure) COPD (chronic obstructive pulmonary disease) Falls UTI (urinary tract infection) Surgical History Surgical History History of hip surgery left, pinning Family History Family History Father Diabetes mellitus Social History Social History Social History: Patient is currently smoking 1/2 pack of cigarettes per day currently but has smoked as much as 2 Packs per day. Has smoked since age 17. Occasional alcohol. He is a full code. Smoking packs per day: 0.5 Smoking cigarettes per day: 10.0 Years smoked: 55 Smoking
--- NOTE | 2021-09-12 12:41 | PC.NURSE ---
Called and spoke with corporate secretary at [facility]. Caity, who is in charge of transport, is unavailable by phone at this time. Currie at [facility] to continue to try to reach her and have Caity call back the ER EUSEBIO
== END 2021-09-12 14:31 ==
PROVIDERS: Emergency Provider Family Medicine; PCP Internal Medicine
DX: J43.9 Emphysema, unspecified (principal); I50.33 Acute on chronic diastolic (congestive) heart failure; I87.8 Other specified disorders of veins; J45.909 Unspecified asthma, uncomplicated; R73.03 Prediabetes; Z87.440 Personal history of urinary (tract) infections; Z79.84 Long term (current) use of oral hypoglycemic drugs; Z79.82 Long term (current) use of aspirin; F17.210 Nicotine dependence, cigarettes, uncomplicated; R94.31 Abnormal electrocardiogram [ECG] [EKG]
CPT/HCPCS: 36415; 71045; 80053; 83880; 84484; 85025; 85610; 87040; 93005; 94640; 96374; 96375; 99284; J1940; J2930

== ENCOUNTER 2021-11-14 08:14 | Outpatient (CLI) | payer MEDICARE, MEDICAID, SELFPAY ==
--- NOTE | ~2021-11-14 | CT_ITS ---
EXAMINATION:CT lung screening DATE: 11/14/2021 09:29 INDICATION: Personal history of tobacco dependence. Current smoker with 50 pack year history. TECHNIQUE: Computed tomography (CT) of the chest was performed without intravenous contrast. Automate d exposure control and iterative reconstruction technique were employed. The dose-length product (DLP ) was 403.37 mGy-cm. COMPARISON: Chest CT 08/20/2021, 09/29/2019 FINDINGS: There is severe emphysema. There is mild scarring at the lung apices. There is chronic mild atelectasis and scarring in the inferior lungs. There is an 8 mm nodule in left lower lobe, stable f rom 09/29/2019. There is a 5 mm nodule in right lower lobe that measured 7 mm on 09/29/19. There is l inear scarring in right middle lobe abutting the minor fissure. There is a 5 mm nodule at right major fissure. No pleural effusion. The heart size is normal. There are coronary artery calcifications. No pericardial effusion. There is bilateral gynecomastia. There is internal fixation of proximal left h umerus. There is mild chronic height loss of multiple vertebral bodies. There is mild thoracic spondy losis. IMPRESSION: 1. Lung-RADS category 2: Benign appearance or behavior. Continue annual screening with noncontrast lo w-dose chest CT in 12 months. Reviewed, dictated and finalized at location B. SEAMER IMPRESSION: 1. Lung-RADS category 2: Benign appearance or behavior. Continue annual screeni ng with noncontrast low-dose chest CT in 12 months.
--- NOTE | 2021-11-14 08:21 | ECHO_ITS ---
Patient Info Name: Isaiah Ambrosio Age: 70 years : 1950 Gender: Male Ht: 74 in Wt: 250 lbs BSA: 2.46 m2 HR: 64 bpm BP: 125 / 70 mmHg Technical Quality: Fair Exam Date: 11/14/2021 8:29 AM Exam Location: [facility] Patient Status: Outpatient Admit Date: 11/14/2021 Staff Ordering Physician: Desmond Thornton MD Lawn Service Worker: Rosy Hermosillo RDCS Attending Provider: Desmond Thornton MD Exam Type: CA echo doppler color flow Study Info Indications I48.0 - Paroxysmal atrial fibrillation Complete two-dimensional, color flow and Doppler transthoracic echocardiogram is performed. Summary 1. Complete two-dimensional, color flow and Doppler transthoracic echocardiogram is performed. 2. Left ventricular chamber dimension is normal. 3. Left ventricular systolic function is normal, estimated at 60-65%. 4. The left ventricular diastolic function is normal. 5. E/e' 8 is minimally elevated. 6. Global longitudinal strain is abnormal at -14.5%. 7. Left atrial chamber dimension is mildly enlarged. 8. Right atrial chamber dimension is moderately enlarged. 9. There is mild aortic valve sclerosis. 10. The mitral valve has mildly calcified annulus. 11. There is mild tricuspid valve regurgitation. 12. Moderate pulmonary hypertension, estimated pulmonary arterial systolic pressure is 58 mmHg. 13. Dilated inferior vena cava with >50% collapse upon inspiration consistent with elevated right atrial pressure, 10 mmHg. Left Ventricle E/e' 8 is minimally elevated. Global longitudinal strain is abnormal at -14.5%. Left ventricular chamber dimension is normal. Left ventricular systolic function is normal, estimated at 60-65%. The left ventricular diastolic function is normal. Right Ventricle Right ventricular chamber dimension is normal. Right ventricular systolic function is normal. Left Atria Left atrial chamber dimension is mildly enlarged. Right Atria Right atrial chamber dimension is moderately enlarged. Aortic Valve The aortic valve is trileaflet. There is mild aortic valve sclerosis. There is no aortic valve stenosis. There is no aortic valve regurgitation. Pulmonic Valve There is no pulmonic regurgitation. Mitral Valve The mitral valve has mildly calcified annulus. There is no mitral valve stenosis. There is no mitral valve regurgitation. Tricuspid Valve There is mild tricuspid valve regurgitation. Moderate pulmonary hypertension, estimated pulmonary arterial systolic pressure is 58 mmHg. Pericardium/Pleural There is no pericardial effusion. Inferior Vena Cava Dilated inferior vena cava with >50% collapse upon inspiration consistent with elevated right atrial pressure, 10 mmHg. Aorta The aortic root size at the sinus of Valsalva is normal. Left Ventricular Outflow Tract Name Value Normal LVOT 2D LVOT Diameter 2.0 cm LVOT Doppler LVOT Peak Gradient 6 mmHg LVOT Mean Gradient 3 mmHg LVOT VTI 29 cm LVOT VTI/AV VTI Ratio 1.1 LVOT Stroke Volume
[2021-11-14 08:41] LABS: Basophils Absolute Auto 0.1 K/mm3 (0.0-0.1); Basophils Percent Auto 0.7 % (0.2-1.2); Eosinophils Absolute Auto 0.4 K/mm3 (0-0.3); Eosinophils Percent Auto 2.9 % (0-4.4); Hematocrit 40.7 % (42.0-52.0); Hemoglobin 12.8 g/dL (14.0-18.0); Immature Granulocyte Absolute 0.05 K/mm3 (0.00-0.031); Immature Granulocyte Percent A 0.4 % (0-0.5); Lymphocytes Absolute Auto 2.66 K/mm3 (0.9-3.2); Lymphocytes Percent Auto 19.9 % (18.3-44.2); Mean Corpuscular HGB Conc 31.4 g/dl (32-36); Mean Corpuscular Hemoglobin 28.2 pg (26-34); Mean Corpuscular Volume 89.6 fl (80-100); Mean Platelet Volume 11.1 fl (7.4-10.4); Monocytes Absolute Auto 0.9 K/mm3 (0.1-0.6); Monocytes Percent Auto 6.9 % (2.6-8.5); Neutrophils Absolute Auto 9.3 K/mm3 (1.3-6.7); Neutrophils Percent Auto 69.2 % (45.5-73.1); Platelet Count Result 226 k/mm3 (150-375); Red Blood Count 4.54 M/mm3 (4.6-6.20); Red Cell Distribution Width 16.2 % (11.5-14.5); White Blood Count 13.4 K/mm3 (4.5-10.0)
[2021-11-14 08:48] LABS: Hemoglobin A1C 6.3 % (<5.7)
[2021-11-14 08:52] LABS: Alanine Aminotransferase 21 U/L (4-50); Albumin Level 3.9 g/dL (3.5-5.1); Alkaline Phosphatase 108 U/L (38-126); Anion Gap 9 mmol/L (8-16); Aspartate Amino Transferase 27 U/L (17-59); Bilirubin,Total 0.5 mg/dL (0.2-1.3); Blood Urea Nitrogen 15 mg/dL (9-20); Carbon Dioxide 25 mmol/L (22-30); Chloride 103 mmol/L (98-107); Estimated Glomerular Filt Rate > 60; Glucose 106 mg/dL (65-110); Potassium 4.1 mmol/L (3.4-5.0); Sodium 137 mmol/L (137-145)
[2021-11-14 09:31] LABS: MALB Creatinine Ratio < 6.5 mg/g (0-30); Microalbumin Urine Random < 6.0 mg/L (0-16.7)
== END 2021-11-14 08:15 | disposition home or self-care (01) ==
PROVIDERS: PCP Internal Medicine; Visit Provider Internal Medicine
DX: I48.0 Paroxysmal atrial fibrillation (principal); I10 Essential (primary) hypertension; E11.65 Type 2 diabetes mellitus with hyperglycemia; I27.20 Pulmonary hypertension, unspecified; I35.8 Other nonrheumatic aortic valve disorders; R91.1 Solitary pulmonary nodule; Z87.891 Personal history of nicotine dependence
CPT/HCPCS: 36415; 71271; 80053; 82043; 83036; 85025; 93306